=== PATIENT | male | born 2000 | race African-American/Black ===

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

== ENCOUNTER 2025-02-24 20:26 | Inpatient (IN) | payer OTHER, SELFPAY ==
[~2025-02-24] VITALS: Ht 177.8 cm; Wt 90.9 kg
[~2025-02-24 20:26] MED LIST changes: +CYCL5TAB4 PO; +DOXY-441 PO; -DOXY100C37 PO
[2025-02-24] MEDS ORDERED: ONDANSETRON 4MG 2ML VIAL As Ordered ONE (20:32)
[2025-02-24] MEDS: HALOPERIDOL LACTATE 5 MG/ML VIAL IM STA (20:51)
[2025-02-24] MEDS: MIDAZOLAM INJ 2 MG/2 ML VIAL IV STA (20:51)
[2025-02-24] MEDS: ONDANSETRON 4MG 2ML VIAL IV ONE (20:52)
[2025-02-24 21:08] LABS: BASO # 0.1 10^3/uL (0.0-0.2); BASO % 0.6 % (0.0-1.0); EOS # 0.2 10^3/uL (0.0-0.5); EOS % 1.8 % (0.0-3.0); LYMPH # 3.5 10^3/uL (1.5-5.0); LYMPH % 36.7 % (24.0-44.0); MONO # 0.6 10^3/uL (0.0-0.8); MONO % 6.4 % (2.0-8.0); NEUTROPHILS # 5.2 10^3/uL (1.5-8.5); NEUTROPHILS % 54.2 % (36.0-66.0); PLATELET COUNT, AUTOMATED 192 10^3/uL (150-450)
[2025-02-24 21:24] LABS: ETHYL ALCOHOL (ETHANOL) 0.251 % (0.000-0.010)
[2025-02-24 21:26] LABS: CALCIUM LEVEL 9.6 MG/DL (8.5-10.1); CARBON DIOXIDE LEVEL 24 MMOL/L (20-31); CHLORIDE LEVEL 104 MMOL/L (98-107); CREATININE FOR GFR 0.86 MG/DL (0.70-1.30); GLOMERULAR FILTRATION RATE > 90.0 (>60); MAGNESIUM LEVEL 2.2 MG/DL (1.8-2.4); POTASSIUM SERUM 3.6 MMOL/L (3.5-5.1); SODIUM LEVEL 145 MMOL/L (136-145)
[2025-02-24 22:31] LABS: AMPHETAMINES LEVEL URINE NEGATIVE (NEGATIVE); BARBITURATES URINE NEGATIVE (NEGATIVE); BENZODIAZEPINES URINE NEGATIVE (NEGATIVE); COCAINE METABOLITE URINE NEGATIVE (NEGATIVE); METHADONE URINE NEGATIVE (NEGATIVE); OPIATES URINE NEGATIVE (NEGATIVE); PHENCYCLIDINE URINE NEGATIVE (NEGATIVE)
[2025-02-24 22:32] LABS: CANNABINOIDS URINE POSITIVE (NEGATIVE)
[2025-02-25] MEDS ORDERED: HOME MED LIST COMPLETE! XX SCH (07:55)
[2025-02-25] MEDS ORDERED: MOM 30 ML SUSPENSION UDC PO PRN (11:30)
[2025-02-25] MEDS ORDERED: ACETAMINOPHEN 325 MG TAB PO PRN (11:30)
[2025-02-25] MEDS ORDERED: MAALOX 30 ML SUSP *UDC PO PRN (11:30)
[2025-02-25 12:30] VITALS: BP 140/89; TEMP 96.9; O2SAT 98
[2025-02-26] VITALS (7 sets, daily range): BP systolic 116–159; BP diastolic 75–99; TEMP 96.8–98.1; O2SAT 99
[2025-02-26] MEDS: THIAMINE 100 MG TAB PO SCH (08:49)
[2025-02-26] MEDS: MULTIVITAMINS/MINERALS THERAP 1 TAB PO SCH (08:49)
[2025-02-26] MEDS: FOLIC ACID 1 MG TAB PO SCH (08:49)
[2025-02-26] MEDS: ESCITALOPRAM OXALATE 5 MG TABLET PO SCH (11:40)
[2025-02-27 05:00] VITALS: BP 147/75
[2025-02-27] MEDS: NICOTINE 21MG/24HR 1 EA TRANSDERMAL TD SCH (08:37)
[2025-02-27 12:24] VITALS: BP 141/90; TEMP 98; O2SAT 96
[2025-02-27 15:41] VITALS: BP 162/78; TEMP 97.7; O2SAT 96
[2025-02-27 16:40] VITALS: BP 153/95
[2025-02-27] MEDS: traZODone 50 MG TAB PO PRN (20:44)
[2025-02-28 08:05] VITALS: BP 143/69; TEMP 97.6; O2SAT 97
[2025-02-28] MEDS: IBUPROFEN 400 MG TAB PO PRN (12:59)
[2025-02-28 15:22] VITALS: BP 142/76; TEMP 97; O2SAT 98
[2025-03-01 07:09] VITALS: BP 120/80; TEMP 97.3; O2SAT 97
[2025-03-01 15:07] VITALS: BP 147/79; TEMP 97.6; O2SAT 96
[2025-03-01] MEDS: traZODone 50 MG TAB PO ONE (23:13)
[2025-03-02 06:31] VITALS: BP 133/63; TEMP 97.9; O2SAT 99
[2025-03-02] MEDS ORDERED: TRAZ-252 PO (09:34)
[2025-03-02] MEDS ORDERED: LEXA5TAB13 PO (09:34)
== END 2025-03-02 11:20 | disposition home or self-care (01) | DRG 881 ==
LOC: M ED 20:26 → M ED INP 02-25 11:27 → M PSY 02-25 12:15
PROVIDERS: ADMIT General Practice; ATTEND General Practice
DX: F43.21 Adjustment disorder with depressed mood (principal); F12.90 Cannabis use, unspecified, uncomplicated; F90.9 Attention-deficit hyperactivity disorder, unspecified type; F10.10 Alcohol abuse, uncomplicated